=== PATIENT | female | born 1980 | race Two or more races ===

== ENCOUNTER 2019-06-26 01:23 | Emergency (ER) | payer MEDICAID ==
[~2019-06-26] VITALS: Ht 162.6 cm; Wt 72.6 kg
[2019-06-26 01:40] VITALS: BP 129/84
--- NOTE | 2019-06-26 01:40 | NUR ---
ED Nurse Note: Pt walked into ED from home for c/o n/v and abdominal pain since 2300 yesterday. Pt states pain is 10/10 in her RLQ and is sharp in nature. Pt is aaox4, no cardiac or respiratory distress noted.
[2019-06-26] MEDS ORDERED: Morphine Sulfate 4mg/ml Inj (IV USE ONLY) IVP ONE ×3 (01:45→06:00)
[2019-06-26] MEDS ORDERED: Omnipaque-300 100ml vial INJ PRN (01:45)
[2019-06-26 02:12] LABS: APPEARANCE,URINE CLEAR; BILIRUBIN, URINE NEGATIVE (NEGATIVE); GLUCOSE, URINE (UA) NEGATIVE (NEGATIVE); KETONES,URINE 4+ (NEGATIVE); LEUKOCYTE ESTERASE ,URINE 1+ (NEGATIVE); NITRITE,URINE NEGATIVE (NEGATIVE); PH,URINE 6.5 (4.5-8.0); PROTEIN,URINE NEGATIVE (NEGATIVE); UROBILINOGEN,URINE NORMAL MG/DL (0.0-1.0)
[2019-06-26 02:12] LABS: BASOPHILS % (AUTO) 0.6 % (0.0-2.0); EOSINOPHILS % (AUTO) 1.3 % (0.0-3.0); HEMOGLOBIN 11.7 G/DL (12.0-16.0); LYMPHOCYTES % (AUTO) 36.6 % (20.0-45.0); MEAN CORPUSCULAR VOLUME 81 FL (80-99); NEUTROPHILS % (AUTO) 55.5 % (45.0-75.0); PLATELET COUNT 284 K/UL (150-450); RED BLOOD COUNT 4.33 M/UL (4.20-5.40); RED CELL DISTRIBUTION WIDTH 12.5 % (11.6-14.8); WHITE BLOOD COUNT 10.7 K/UL (4.8-10.8)
[2019-06-26 02:17] LABS: COLOR,URINE YELLOW
[2019-06-26 02:24] LABS: ANION GAP 13 mmol/L (5-15); BLOOD UREA NITROGEN 22 mg/dL (7-18); CARBON DIOXIDE 25 MMOL/L (21-32); CHLORIDE 104 MMOL/L (98-107); CREATININE 0.8 MG/DL (0.55-1.30); POTASSIUM 3.4 MMOL/L (3.5-5.1); SODIUM 142 MMOL/L (136-145)
[2019-06-26 02:27] LABS: ALANINE AMINOTRANSFERASE 46 U/L (12-78); ALBUMIN 3.9 G/DL (3.4-5.0); ALKALINE PHOSPHATASE 133 U/L (46-116); ASPARTATE AMINO TRANSFERASE 30 U/L (15-37); BILIRUBIN,TOTAL 0.2 MG/DL (0.2-1.0)
--- NOTE | 2019-06-26 02:33 | Emergency Room Report ---
History of Present Illness General Chief Complaint: Abdominal Pain Source: Patient Present Illness HPI 39-year-old female presents ED for evaluation. Complaining of abdominal pain. Started earlier today yesterday. Sudden onset. 10 out of 10, localized to right lower quadrant, nonradiating. Denies nausea or vomiting. Denies fevers or chills. Took head-cvz-emppous medication without relief. No other aggravating relieving factors. Denies any other associated symptoms Allergies: Coded Allergies: No Known Allergies (Unverified , 06/26/19) Patient History Past Medical History: none Past Surgical History: none Pertinent Family History: none Social History: Denies: smoking, alcohol use, drug use Now: No Immunizations: UTD Reviewed Nursing Documentation: PMH: Agreed; PSxH: Agreed Nursing Documentation-PMH Past Medical History: No Stated History Review of Systems All Other Systems: negative except mentioned in HPI Physical Exam Vital Signs Date Time Temp Pulse Resp B/P (MAP) Pulse Ox O2 Delivery O2 Flow Rate FiO2 06/26/19 01:31 98.1 75 20 129/84 (99) 98 Room Air Sp02 EP Interpretation: reviewed, normal General Appearance: alert, GCS 15, non-toxic, mild distress Head: normocephalic, atraumatic Eyes: bilateral eye normal inspection, bilateral eye PERRL ENT: hearing grossly normal, normal pharynx, no angioedema, normal voice Neck: full range of motion, supple/symm/no masses Respiratory: chest non-tender, lungs clear, normal breath sounds, speaking full sentences Cardiovascular #1: regular rate, rhythm, no edema Cardiovascular #2: 2+ carotid (R), 2+ carotid (L), 2+ radial (R), 2+ radial (L) , 2+ dorsalis pedis (R), 2+ dorsalis pedis (L) Gastrointestinal: normal bowel sounds, soft, non-distended, no guarding, no rebound, tenderness - RLQ Rectal: deferred Genitourinary: normal inspection, no CVA tenderness Musculoskeletal: back normal, normal range of motion, gait/station normal, non- tender Neurologic: alert, motor strength/tone normal, oriented x3, sensory intact, responsive, speech normal Psychiatric: judgement/insight normal, memory normal, mood/affect normal, no suicidal/homicidal ideation Reflexes: 3+ bicep (R), 3+ bicep (L), 3+ tricep (R), 3+ tricep (L), 3+ knee (R) , 3+ knee (L) Skin: no rash Lymphatic: no adenopathy Medical Decision Making Diagnostic Impression: Primary Impression: Ovarian cyst Qualified Codes: N83.201 - Unspecified ovarian cyst, right side ER Course Hospital Course 39-year-old F presents to ED with lower abdominal pain Differential diagnosis includes- cystitis, UTI, appendicitis, ovarian cyst/ torsion Clinical course Patient placed on stretcher. After initial history and physical I ordered labs , IV fluids, pain meds, CT Labs - no leukocytosis, electrolytes ok, LFTs normal, UA unremarkable CT - no evidence of appendicitis. Concern for ovarian cysts versus torsion Pelvic US - R large ovarian cysts, one is hemorrhagic. no free fluid I discussed findings with patient. On reassessment pain improved. Patient can be discharged home. Safe for discharge with close outpatient follow-up. I will provide referrals I feel this is a highly complex case requiring extensive working including EKG/ Rhythm strip, Xray/CT/US, Blood/urine lab work, repeat exams while in ED, and administration of strong opiates/narcotics for pain control, admission to hospital or close patient follow up. Diagnosis - ovarian cyst Stable and discharged to home with Rx [place], Motrin, Zofran. Followup with PMD. Return to ED if symptoms recur or worsen Labs Test 06/26/19 01:50 06/26/19 02:00 White Blood Count 10.7 K/UL (4.8-10.8) Red Blood Count 4.33 M/UL (4.20-5.40) Hemoglobin 11.7 G/DL (12.0-16.0) Hematocrit 35.0 % (37.0-47.0) Mean Corpuscular Volume 81 FL (80-99) Mean Corpuscular Hemoglobin 27.0 PG (27.0-31.0) Mean Corpuscular Hemoglobin Concent 33.4 G/DL (32.0-36.0) Red Cell Distribution Width 12.5 % (11.6-14.8) Platelet Count 284 K/UL (150-450) Mean Platelet Volume 7.3 FL (6.5-10.1) Neutrophils (%) (Auto) 55.5 % (45.0-75.0) Lymphocytes (%) (Auto) 36.6 % (20.0-45.0) Monocytes (%) (Auto) 6.0 % (1.0-10.0) Eosinophils (%) (Auto) 1.3 % (0.0-3.0) Basophils (%) (Auto) 0.6 % (0.0-2.0) Sodium Level 142 MMOL/L (136-145) Potassium Level 3.4 MMOL/L (3.5-5.1) Chloride Level 104 MMOL/L (98-107) Carbon Dioxide Level 25 MMOL/L (21-32) Anion Gap 13 mmol/L (5-15) Blood Urea Nitrogen 22 mg/dL (7-18) Creatinine 0.8 MG/DL (0.55-1.30) Estimat Glomerular Filtration Rate > 60 mL/min (>60) Glucose Level 140 MG/DL (74-106) Calcium Level 9.0 MG/DL (8.5-10.1) Total Bilirubin 0.2 MG/DL (0.2-1.0) Aspartate Amino Transf (AST/SGOT) 30 U/L (15-37) Alanine Aminotransferase (ALT/SGPT) 46 U/L (12-78) Alkaline Phosphatase 133 U/L (46-116) Total Protein 7.9 G/DL (6.4-8.2) Albumin 3.9 G/DL (3.4-5.0) Globulin 4.0 g/dL Albumin/Globulin Ratio 1.0 (1.0-2.7) Lipase 124 U/L (73-393) Human Chorionic Gonadotropin, Qual Negative (NEGATIVE) Urine Color Yellow Urine Appearance Clear Urine pH 6.5 (4.5-8.0) Urine Specific [place] 1.020 (1.005-1.035) Urine Protein Negative (NEGATIVE) Urine Glucose (UA) Negative (NEGATIVE) Urine Ketones 4+ (NEGATIVE) Urine Blood Negative (NEGATIVE) Urine Nitrite Negative (NEGATIVE) Urine Bilirubin Negative (NEGATIVE) Urine Urobilinogen Normal MG/DL (0.0-1.0) Urine Leukocyte Esterase 1+ (NEGATIVE) Urine RBC 2-4 /HPF (0 - 2) Urine WBC 2-4 /HPF (0 - 2) Urine Squamous Epithelial Cells Moderate /LPF (NONE/OCC) Urine Amorphous Sediment Moderate /LPF (NONE) Urine Bacteria Few /HPF (NONE) Urine HCG, Qualitative Negative (NEGATIVE) CT/MRI/US Diagnostic Results CT/MRI/US Diagnostic Results #1: Imaging Test Ordered: CT A/P Impression COMPARISON: None available FINDINGS: Lung bases: Unremarkable. No mass. No consolidation. ABDOMEN: Liver: Unremarkable. No mass. Gallbladder and bile ducts: Unremarkable. No calcified stones. No ductal dilation. Pancreas: Unremarkable. No mass. No ductal dilation. Spleen: Unremarkable. No splenomegaly. Adrenals: Unremarkable. No mass. Kidneys and ureters: Unremarkable. No solid mass. No hydronephrosis. Stomach and bowel: Unremarkable. No obstruction. No mucosal thickening. PELVIS: Appendix: No findings to suggest acute appendicitis. Bladder: Unremarkable. No mass. Reproductive: Right adnexal cysts result in ovarian enlargement to 8.5 cm length with intermediate density in one of the 2 dominant cysts, Hounsfield units 20. ABDOMEN and PELVIS: Intraperitoneal space: Unremarkable. No free air. No significant fluid collection. Bones/joints: No acute fracture. No dislocation. Soft tissues: Unremarkable. Vasculature: Unremarkable. No abdominal aortic aneurysm. Lymph nodes: Unremarkable. No enlarged lymph nodes. IMPRESSION: There are at least 2 dominant cysts causing right ovarian enlargement, one of which may be hemorrhagic. If ovarian torsion is suspected, pelvic ultrasound including a transabdominal approach is recommended. Otherwise negative abdomen and pelvis CT. CT/MRI/US Diagnostic Results #2: Imaging Test Ordered: Pelvic US Impression FINDINGS: Uterus/cervix: The uterus measures 11.4 x 4.5 x 3.7 cm. The endometrial stripe measures 9 mm. The cervix measures 3.1 cm. No myometrial mass. Right ovary: The right ovary shows demonstrable blood flow but contains 2 large adjacent cysts, one of which contains layering nonvascular debris (labeled mass B on the images). This latter mass measures 4.5 cm. Mass A measures 4.1 cm. Right ovary measures 3.6 x 3.2 x 4.5 cm. Left ovary: The left ovary measures 2.8 x 2.4 x 2.3 cm and demonstrate normal flow. Normal blood flow. Free fluid: No free fluid. Bladder: Unremarkable as visualized. Wall is normal thickness for degree of distention. IMPRESSION: No evidence of ovarian torsion. Right ovary shows 2 cysts, one of which is likely hemorrhagic. Recommend clinical follow-up with consideration of ultrasound in 6 weeks to assess stability or resolution of these findings. Last Vital Signs Date Time Temp Pulse Resp B/P (MAP) Pulse Ox O2 Delivery O2 Flow Rate FiO2 06/26/19 02:18 98.1 06/26/19 01:40 75 20 Room Air 06/26/19 01:40 129/84 98 Status: improved Disposition: HOME, SELF-CARE Condition: Stable Scripts Hydrocodone Bit/Acetaminophen 5-325* (NORCO 5-325*) 1 Each Tablet 1 TAB ORAL Q6H PRN for For Pain, #10 TAB 0 Refills Prov: Sameer Madden MD 06/26/19 Ibuprofen* (MOTRIN*) 600 Mg Tablet 600 MG ORAL Q8H PRN for For Pain, #30 TAB 0 Refills Prov: Sameer Madden MD 06/26/19 Ondansetron Odt* (ZOFRAN ODT*) 4 Mg Tab.rapdis 4 MG BC EVERY 8 HOURS, #10 TAB 0 Refills Prov: Sameer Madden MD 06/26/19 Referrals: NOT CHOSEN IPA/,REFERRING (PCP) Sameer Madden MD Jun 26, 2019 02:33
[2019-06-26] MEDS ORDERED: Ketorolac 30mg Inj IV ONE (04:00)
--- NOTE | 2019-06-26 04:07 | Diagnostic Imaging Report ---
EXAM: CT Abdomen and Pelvis With Intravenous Contrast CLINICAL HISTORY: ABD PAIN TECHNIQUE: Axial computed tomography images of the abdomen and pelvis with intravenous contrast. CTDI is 8.5 mGy and DLP is 420.7 mGy-cm. One or more of the following dose reduction techniques were used: automated exposure control, adjustment of the mA and/or kV according to patient size, use of iterative reconstruction technique. COMPARISON: None available FINDINGS: Lung bases: Unremarkable. No mass. No consolidation. ABDOMEN: Liver: Unremarkable. No mass. Gallbladder and bile ducts: Unremarkable. No calcified stones. No ductal dilation. Pancreas: Unremarkable. No mass. No ductal dilation. Spleen: Unremarkable. No splenomegaly. Adrenals: Unremarkable. No mass. Kidneys and ureters: Unremarkable. No solid mass. No hydronephrosis. Stomach and bowel: Unremarkable. No obstruction. No mucosal thickening. PELVIS: Appendix: No findings to suggest acute appendicitis. Bladder: Unremarkable. No mass. Reproductive: Right adnexal cysts result in ovarian enlargement to 8.5 cm length with intermediate density in one of the 2 dominant cysts, Hounsfield units 20. ABDOMEN and PELVIS: Intraperitoneal space: Unremarkable. No free air. No significant fluid collection. Bones/joints: No acute fracture. No dislocation. Soft tissues: Unremarkable. Vasculature: Unremarkable. No abdominal aortic aneurysm. Lymph nodes: Unremarkable. No enlarged lymph nodes. IMPRESSION: There are at least 2 dominant cysts causing right ovarian enlargement, one of which may be hemorrhagic. If ovarian torsion is suspected, pelvic ultrasound including a transabdominal approach is recommended. Otherwise negative abdomen and pelvis CT.
[2019-06-26 05:30] VITALS: BP 119/79
--- NOTE | 2019-06-26 05:30 | NUR ---
ED Nurse Note: Pt resting in bed at this time, no acute distress noted. VSS. Pt family member at bedside. Will continue to monitor. Pt states pain feels slightly better when in high cosby position.
--- NOTE | 2019-06-26 05:55 | NUR ---
ED Nurse Note: Pt had episode of vomiting and stating abdominal pain is severe at 10/10 again. ERMD aware.
--- NOTE | 2019-06-26 06:20 | Diagnostic Imaging Report ---
EXAM: US Pelvis Transabdominal, Complete CLINICAL HISTORY: ABD PAIN TECHNIQUE: Real-time complete transabdominal pelvic ultrasound with image documentation. COMPARISON: Abdomen and pelvis CT of earlier the same day FINDINGS: Uterus/cervix: The uterus measures 11.4 x 4.5 x 3.7 cm. The endometrial stripe measures 9 mm. The cervix measures 3.1 cm. No myometrial mass. Right ovary: The right ovary shows demonstrable blood flow but contains 2 large adjacent cysts, one of which contains layering nonvascular debris (labeled mass B on the images). This latter mass measures 4.5 cm. Mass A measures 4.1 cm. Right ovary measures 3.6 x 3.2 x 4.5 cm. Left ovary: The left ovary measures 2.8 x 2.4 x 2.3 cm and demonstrate normal flow. Normal blood flow. Free fluid: No free fluid. Bladder: Unremarkable as visualized. Wall is normal thickness for degree of distention. IMPRESSION: No evidence of ovarian torsion. Right ovary shows 2 cysts, one of which is likely hemorrhagic. Recommend clinical follow-up with consideration of ultrasound in 6 weeks to assess stability or resolution of these findings.
[2019-06-26] MEDS ORDERED: IBUPROFEN600 MG ORAL (06:28)
[2019-06-26] MEDS ORDERED: ONDANSETRON ODT4 MG BC (06:28)
[2019-06-26] MEDS ORDERED: NORCO 5-325 TA1 EACH ORAL (06:28)
[2019-06-26 06:40] VITALS: BP 138/75
--- NOTE | 2019-06-26 06:40 | NUR ---
ER DISCHARGE NOTE: Patient is cleared to be discharged per ERMD, pt is aox4, on room air, with stable vital signs. pt was given dc and prescription instructions, pt was able to verbalize understanding, pt id band and iv site removed without complications. pt is able to ambulate with steady gait. pt took all belongings.
== END 2019-06-26 06:40 | disposition home or self-care (01) ==
LOC: EMR 01:49
DX: N83.201 Unspecified ovarian cyst, right side (principal)
CPT/HCPCS: 36415; 74177; 76856; 80053; 81003; 81025; 83690; 84703; 85025; 96361; 96374; 96375; 96376; J1885; J2270; J2405; J7030; Q9967; Z7502; 99284